=== PATIENT | male | born 1995 | race Caucasian/White ===

== ENCOUNTER 2019-08-02 08:16 | Outpatient (CLI) | payer OTHER ==
--- NOTE | 2019-08-02 12:46 | CARDIAC PROCEDURE NOTE ---
DATE OF SERVICE: 08/02/2019 Physician: Judy Bermudez MD, [facility] INDICATION: Chest pain. CARDIAC RISK FACTORS: Current smoker of cigarettes. 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 DESCRIPTION OF PROCEDURE: After signing informed consent, the patient underwent a Kevin-protocol treadmill stress test. No nuclear or Echo imaging was ordered with this test. RESTING HEART RATE: 62. PEAK HEART RATE: 176 (88% predicted maximum heart rate for age). RESTING BLOOD PRESSURE: 115/72. PEAK BLOOD PRESSURE: 184/80. The patient exercised for 8 minutes and 37 seconds on a Kevin-protocol treadmill stress test. He achieved a peak heart rate of 176 (88% PMHR) and 10.2 METs. Normal heart rate and blood pressure response to exercise. Oxygen saturation was 93% to 98% on room air throughout the test. The patient developed no chest pain and had no difficulty with exercise. There was no chest pain after exertion as well. RESTING ELECTROCARDIOGRAM: Normal sinus rhythm, right axis deviation, LVH voltage. ELECTROCARDIOGRAM AT PEAK: Even more rightward axis deviation, and new T-wave flattening in leads II, III, aVF, and V4 through V6. The T-wave changes recovered after 1 minute of rest. SUMMARY 1. Abnormal resting EKG. 2. Nonspecific T-wave abnormalities develop with exercise. 3. Good exercise tolerance. 4. This patient's coronary risk based on all the above: Low-Moderate. RECOMMENDATIONS: 1. 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 cc requested for Dr. Darci Haddad cc: Darci Haddad III, MD TD: 08/02/2019 11:04 [email or web address]
== END 2019-08-02 08:17 | disposition home or self-care (01) ==
LOC: DI 08:16
PROVIDERS: ATTEND General Practice
DX: R94.31 Abnormal electrocardiogram [ECG] [EKG] (principal); F17.200 Nicotine dependence, unspecified, uncomplicated; Z86.79 Personal history of other diseases of the circulatory system
CPT/HCPCS: 93017